=== PATIENT | male | born 1990 | race Caucasian/White ===

== ENCOUNTER 2020-05-18 10:34 | Emergency (ER) | payer OTHER, SELFPAY ==
[2020-05-18 10:44] VITALS: BP 159/100; PULSE 126; RESP 20; TEMP 36.8; O2SAT 99
--- NOTE | 2020-05-18 10:47 | ED.EXTPRO ---
HPI - Extremity Problem General Chief complaint: Extremity Problem,Nontraumatic Stated complaint: rt ankle pain Source: patient Mode of arrival: ambulatory Limitations: no limitations History of Present Illness HPI Narrative: Patient is a 30-year-old male who presents to urgent care with right ankle pain and swelling. He reports swelling and pain started yesterday, increasing this a.m. Warmth and redness started this a.m. Reports increased pain with ambulation. Denies injury. Denies any past medical history. Patient arrives and is hypertensive and tachycardic. He denies all other complaints at this time. Complaint: extremity swelling, joint swelling and joint paint Related Data Home Medications Medication Instructions Recorded Confirmed No Home Medications 05/18/20 05/18/20 Allergies Allergy/AdvReac Type Severity Reaction Status Date / Time No Known Allergies Allergy Mild Verified 05/18/20 11:28 Review of Systems Review of Systems: Narrative: CONSTITUTIONAL: Denies fever, chills, or sweats. EYES: Denies visual changes, redness, or discharge. ENT: Denies rhinorrhea, congestion, sore throat, or otalgia. CARDIOVASCULAR: Denies chest pain, palpitations, or edema. RESPIRATORY: Denies cough or dyspnea. GASTROINTESTINAL: Denies abdominal pain, nausea, vomiting, or diarrhea. GENITOURINARY: Denies dysuria or hematuria. SKIN: Denies rash or itching. MUSCULOSKELETAL: Reports pain and swelling to right ankle NEUROLOGIC: Denies headache, numbness, dizziness, or weakness. PSYCHIATRIC: Denies anxiety or depression. PMFSH Past Medical History Medical History (Updated 05/18/20 @ 11:13 by MATT Clements) No significant family history Patient denies significant medical history Surgical History Surgical History (Updated 05/18/20 @ 11:07 by MATT Clements) No significant past surgical history Family History Family History (Updated 05/18/20 @ 11:08 by MATT Clements) Other No significant family history Social History Social History (Updated 05/18/20 @ 11:08 by MATT Clements) Smoking status: Never smoker Alcohol intake: current Substance use: never Exam Narrative: Exam Narrative: GENERAL: Well-appearing, well-nourished, and in no acute distress. HEAD: Normocephalic, atraumatic. EYES: No redness or drainage. ENT: Mucous membranes pink and moist. CHEST: No respiratory distress. Clear to auscultation. HEART: Regular rate and rhythm. MUSCULOSKELETAL: No bony tenderness. EXTREMITIES: Positive edema, erythema and warmth to right ankle and foot, mild tenderness with palpation to posterior calf SKIN: Warm, dry, no rash. NEURO: No focal deficits. Alert and oriented x3. Gait steady. PSYCH: Normal affect. No signs of depression or anxiety. Course Vital Signs Vital signs: Vital Signs Temperature 36.8 C 05/18/20 10:44 Pulse Rate 126 H 05/18/20 10:44 Respiratory Rate 20 05/18/20 10:44 Blood Pressure 159/100 H 05/18/20 10:44 Pulse Oximetry 99 05/18/20 10:44 Temperature 36.8 C 05/18/20 10:44 Pulse Rate 126 H 05/18/20 10:44 Respiratory Rate 20 05/18/20 10:44 Blood Pressure 159/100 H 05/18/20 10:44 Pulse Oximetry 99 05/18/20 10:44 Reviewed. Patient has been instructed to follow-up with his PCP regarding his blood pressure. Transfer Transfered to: [facility] rationale: Higher level care Accepting physician: Sharee Torres PA-C took report. Transfer comments: Patient be transported by private vehicle. Patient is stable for transport with private vehicle at this time. MDM - Extremity (Nontraumatic) MDM Narrative Medical decision making narrative: Discussed with patient the possibilities of gout, cellulitis, DVT or other unknown cause. Discussed with patient the need for further lab work and diagnostic testing possibly. Patient to be transferred to [facility] for further evaluation. Patient agrees with plan of care. Patient
== END 2020-05-18 11:05 | disposition short-term general hospital (02) ==
LOC: EXPGLEN 10:41
PROVIDERS: Emergency Provider Nurse Practitioner
DX: R60.0 Localized edema (principal)
CPT/HCPCS: 99202; G0463

== ENCOUNTER 2020-05-18 11:19 | Emergency (ER) | payer OTHER, SELFPAY ==
--- NOTE | ~2020-05-18 | XR_ITS ---
EXAMINATION: XR ankle RT min 3V INDICATION: Right ankle pain, initial encounter TECHNIQUE: Four views of the right ankle are obtained. COMPARISON: None available FINDINGS: There is ankle soft tissue swelling. Bone alignment is normal. No fracture is identified. A dorsal calcaneal enthesophyte is noted. IMPRESSION: 1. Ankle soft tissue swelling without evidence of acute osseous abnormality. Reviewed, dictated and finalized at location A. [facility]
[2020-05-18 11:25] VITALS: BP 147/90; PULSE 116; RESP 18; TEMP 36.6; O2SAT 98
[2020-05-18] MEDS: KETOROLAC (*BKC) 60 MG/2 ML VIAL IM (12:17)
--- NOTE | 2020-05-18 12:24 | ED.LOWEXIN ---
HPI - Extremity Injury (Lower) General Chief Complaint: Extremity Injury, Lower Stated Complaint: right ankle issues Time Seen by Provider: 05/18/20 12:07 Source: patient Mode of arrival: ambulatory Limitations: no limitations History of Present Illness HPI Narrative: This is a 30 year old male that presents to the ER for ankle pain since yesterday. No known injury or trauma. Pain is worse with movement and weight bearing. He took some tylenol yesterday with little relief. Reports swelling and mild redness to the area. Denies fever. Related Data Allergies Allergy/AdvReac Type Severity Reaction Status Date / Time No Known Allergies Allergy Mild Verified 05/18/20 11:28 Review of Systems Review of Systems: Narrative: CONSTITUTIONAL: Denies fever SKIN: Reports redness MUSCULOSKELETAL: Reports joint pain, and myalgia. NEUROLOGIC: Denies numbness All systems reviewed & are unremarkable except as noted in HPI and below PMFSH Past Medical History Medical History (Updated 05/18/20 @ 13:10 by Sharee Andres PA-C) No significant family history Patient denies significant medical history Surgical History Surgical History (Updated 05/18/20 @ 11:07 by MATT Clements) No significant past surgical history Family History Family History (Updated 05/18/20 @ 11:08 by MATT Clements) Other No significant family history Social History Social History (Updated 05/18/20 @ 11:08 by MATT Clements) Smoking status: Never smoker Alcohol intake: current Substance use: never Exam Narrative: Exam Narrative: GENERAL: Well-appearing, well-nourished, and in no acute distress. HEAD: Normocephalic, atraumatic. EYES: EOMI. EXTREMITIES: Normal range of motion. Moderate edema about the right ankle, greatest at the lateral malleoli. Mild overlying redness. Normal DP pulses. Normal sensation SKIN: Warm, dry, no rash. NEURO: No focal deficits. Alert and oriented x3. PSYCH: Normal mood and affect Course Vital Signs Vital signs: Vital Signs Temperature 97.8 F 05/18/20 11:25 Pulse Rate 116 H 05/18/20 11:25 Respiratory Rate 18 05/18/20 11:25 Blood Pressure 147/90 H 05/18/20 11:25 Pulse Oximetry 98 05/18/20 11:25 Temperature 97.8 F 05/18/20 11:25 Pulse Rate 116 H 05/18/20 11:25 Respiratory Rate 18 05/18/20 11:25 Blood Pressure 147/90 H 05/18/20 11:25 Pulse Oximetry 98 05/18/20 11:25 MDM - Extremity Injury (Lower) MDM Narrative Medical decision making narrative: Patient presents the emergency department for right ankle pain and swelling since yesterday. He is afebrile and nontoxic-appearing. CBC is without leukocytosis. ESR is normal. CRP is mildly elevated. Uric acid was elevated. Right ankle x-ray shows soft tissue swelling, no acute osseous abnormalities. Work-up consistent with likely a gout flare. Patient instructed on anti-inflammatories and will be started on colchicine. He is stable and felt appropriate for further outpatient evaluation. He was given warnings to return to the ER Lab Data Attestation: I reviewed the patient's lab results. Result diagrams: 05/18/20 12:21 05/18/20 12: Labs: Lab Results 05/18/20 05/18/20 Range/Units 12:21 12:21 WBC 9.1 (4.5-10.0) K/mm3 RBC 5.40 (4.6-6.20) M/mm3 Hgb 14.7 (14.0-18.0) g/dL Hct 44.4 (42.0-52.0) % MCV 82.2 (80-100) fl MCH 27.2 (26-34) pg MCHC 33.1 (32-36) g/dl RDW 13.4 (11.5-14.5) % Plt Count 270 (150-375) k/mm3 MPV 9.6 (7.4-10.4) fl Immature Gran % (Auto) 0.7 H (0-0.5) % Neut % (Auto) 68.8 (45.5-73.1) % Lymph % (Auto) 21.3 (18.3-44.2) % [place] % (Auto) 8.3 (2.6-8.5) % Eos % (Auto) 0.5 (0-4.4) % Baso % (Auto) 0.4 (0.2-1.2) % Lymph # (Auto) 1.94 (0.9-3.2) K/mm3 [place] # (Auto) 0.8 H (0.1-0.6) K/mm3 Eos # (Auto) 0.1 (0-0.3) K/mm3 Baso # (Auto) 0.0 (0.0-0.1) K/mm3 Abs Immat Gran (auto) 0.06 H (0.00-0
[2020-05-18 12:28] LABS: Basophils Percent Auto 0.4 % (0.2-1.2); Eosinophils Absolute Auto 0.1 K/mm3 (0-0.3); Eosinophils Percent Auto 0.5 % (0-4.4); Hematocrit 44.4 % (42.0-52.0); Hemoglobin 14.7 g/dL (14.0-18.0); Immature Granulocyte Absolute 0.06 K/mm3 (0.00-0.031); Immature Granulocyte Percent A 0.7 % (0-0.5); Lymphocytes Absolute Auto 1.94 K/mm3 (0.9-3.2); Lymphocytes Percent Auto 21.3 % (18.3-44.2); Mean Corpuscular HGB Conc 33.1 g/dl (32-36); Mean Corpuscular Hemoglobin 27.2 pg (26-34); Mean Corpuscular Volume 82.2 fl (80-100); Mean Platelet Volume 9.6 fl (7.4-10.4); Monocytes Absolute Auto 0.8 K/mm3 (0.1-0.6); Monocytes Percent Auto 8.3 % (2.6-8.5); Neutrophils Absolute Auto 6.3 K/mm3 (1.3-6.7); Neutrophils Percent Auto 68.8 % (45.5-73.1); Platelet Count Result 270 k/mm3 (150-375); Red Cell Distribution Width 13.4 % (11.5-14.5); White Blood Count 9.1 K/mm3 (4.5-10.0)
[2020-05-18 12:43] LABS: Anion Gap 10 mmol/L (8-16); Blood Urea Nitrogen 11 mg/dL (9-20); CRP 3.9 mg/dL (<1.0); Calcium 9.8 mg/dL (8.4-10.2); Carbon Dioxide 25 mmol/L (22-30); Chloride 104 mmol/L (98-107); Estimated CRCL calculation 163 ml/min; Estimated Glomerular Filt Rate > 60; Glucose 124 mg/dL (75-110); Potassium 4.5 mmol/L (3.4-5.0); Sodium 139 mmol/L (137-145); Uric Acid 9.1 mg/dL (3.5-8.5)
[2020-05-18 12:51] LABS: Erythrocyte Sedimentation Rate 11 mm/hr (0-20)
== END 2020-05-18 13:39 | disposition home or self-care (01) ==
PROVIDERS: Physician Assistant; Emergency Provider Emergency Medicine; PCP Emergency Medicine
DX: M10.9 Gout, unspecified (principal)
CPT/HCPCS: 36415; 73610; 80048; 84550; 85025; 85652; 86140; 96372; 99283; J1885

== ENCOUNTER 2023-10-31 06:47 | Outpatient (CLI) | payer OTHER, SELFPAY ==
--- NOTE | ~2023-10-31 | MR_ITS ---
MRI of the left knee Clinical history: Internal derangement Technique: Coronal proton density and proton density-weighted images, sagittal proton-density and T2 fat-sat images, and axial proton-density fat-saturated images were acquired. Findings: Anterior and posterior cruciate ligaments are intact. Medial collateral ligament and the la teral collateral ligament complex are intact. Popliteus tendon is intact. Medial and lateral menisci are intact, without evidence of definite tear. There is mild chondromalacia patella. Articular cartilage in the medial lateral compartments is well preserved. Bone marrow signals are unremarkable. Extensor mechanism is intact. Small to moderate joint effusion present. Small Faulkner cyst present. The re is probable intramuscular hematoma of the popliteus muscle belly. Impression: Probable intramuscular hematoma within the popliteus muscle belly. Correlate for recent injury/trauma . Small to moderate joint effusion with small Faulkner's cyst. Reviewed, dictated and finalized at [facility]. Impression: Probable intramuscular hematoma within the popliteus muscle belly. Correlate fo r recent injury/trauma. Small to moderate joint effusion with small Faulkner's cyst.
== END 2023-10-31 06:48 | disposition home or self-care (01) ==
PROVIDERS: Visit Provider Family Medicine Sports Medicine
DX: M25.462 Effusion, left knee (principal); M71.22 Synovial cyst of popliteal space [Baker], left knee
CPT/HCPCS: 73721